=== PATIENT | male | born 1990 | race Caucasian/White ===

== ENCOUNTER 2018-04-10 12:27 | Inpatient (IN) | payer MEDICAID ==
[2018-04-10] MEDS: ONDANSETRON 4 MG ORAL DISINTEGRATING TAB (Q0162 PER 1MG) PO (13:07)
[2018-04-10 13:18] LABS: HEMATOCRIT 40.3 % (42.0-52.0); HEMOGLOBIN 14.5 g/dl (13.5-17.5); MEAN CORPUSCULAR VOLUME 86.3 fl (80.0-96.0); PLATELET COUNT, AUTOMATED 314 10^3/uL (150-450); RED BLOOD COUNT 4.67 10^6/uL (4.30-6.10); RED CELL DISTRIBUTION WIDTH 11.8 % (11.5-14.5); WHITE BLOOD COUNT 8.1 10^3/uL (4.0-10.0)
[2018-04-10] MEDS: LORazepam 2 MG TAB PO (13:20)
[2018-04-10 13:25] LABS: AMPHETAMINES LEVEL URINE NEGATIVE (NEGATIVE); BARBITURATES URINE NEGATIVE (NEGATIVE); BENZODIAZEPINES URINE NEGATIVE (NEGATIVE); CANNABINOIDS URINE POSITIVE (NEGATIVE); COCAINE METABOLITE URINE POSITIVE (NEGATIVE); METHADONE URINE NEGATIVE (NEGATIVE); OPIATES URINE POSITIVE (NEGATIVE); PHENCYCLIDINE URINE NEGATIVE (NEGATIVE)
[2018-04-10 13:35] LABS: ALBUMIN 3.4 GM/DL (3.2-5.2); ALBUMIN/GLOBULIN RATIO 0.89 (1.00-1.93); ALKALINE PHOSPHATASE 84 U/L (45-117); ALT/SGPT 32 U/L (12-78); ANION GAP 5 MEQ/L (8-16); AST/SGOT 28 U/L (7-37); BILIRUBIN,DIRECT < 0.1 MG/DL (0.0-0.2); BILIRUBIN,TOTAL 0.4 MG/DL (0.2-1.0); BLOOD UREA NITROGEN 14 MG/DL (7-18); CALCIUM LEVEL 8.5 MG/DL (8.5-10.1); CARBON DIOXIDE LEVEL 28 MEQ/L (21-32); CHLORIDE LEVEL 109 MEQ/L (98-107); CPK CREATINE PHOSPHOKINASE 411 U/L (39-308); CREATININE FOR GFR 0.88 MG/DL (0.70-1.30); ETHYL ALCOHOL (ETHANOL) < 0.003 % (0.000-0.010); GLOMERULAR FILTRATION RATE > 60.0 (>60); GLUCOSE, FASTING 98 MG/DL (70-100); SALICYLATE LEVEL 2.6 MG/DL (5.0-30.0); SODIUM LEVEL 142 MEQ/L (136-145); TOTAL PROTEIN 7.2 GM/DL (6.4-8.2)
[2018-04-10 13:40] LABS: ACETAMINOPHEN LEVEL < 2.0 UG/ML (10.0-30.0)
[2018-04-10] MEDS ORDERED: MAALOX 30 ML SUSP *UDC PO (14:15)
[2018-04-10] MEDS ORDERED: MOM 30ML SUSPENSION UDC PO (14:15)
[2018-04-10] MEDS ORDERED: ACETAMINOPHEN TAB 650MG DOSE (2X325MG) PO (14:15)
[2018-04-10] MEDS: traZODone 50 MG TAB PO (20:22)
[2018-04-10] MEDS: cloNIDine 0.1 MG TAB PO (20:23)
[2018-04-10] MEDS: diphenhydrAMINE INJ 50MG/ML VIAL (J1200) IM (20:39)
[2018-04-10] MEDS: OLANZapine INTRAMUSCULAR 10 MG VIAL (S0166) IM (20:39)
== END 2018-04-11 12:45 | disposition home or self-care (01) | DRG 773 ==
LOC: M ED 12:27 → M ED INP 14:05 → M PSY 15:05
DX: F11.94 Opioid use, unspecified with opioid-induced mood disorder (principal); R45.851 Suicidal ideations; I10 Essential (primary) hypertension; G43.909 Migraine, unspecified, not intractable, without status migrainosus; F17.210 Nicotine dependence, cigarettes, uncomplicated; Z79.899 Other long term (current) drug therapy; Z87.442 Personal history of urinary calculi

== ENCOUNTER 2018-05-03 17:22 | Emergency (ER) | payer OTHER, MEDICAID ==
[2018-05-03] MEDS ORDERED: LIDOCAINE W/EPINEPHRINE 1% 20ML VIAL As Ordered (18:48)
[2018-05-03] MEDS: LIDOCAINE W/EPINEPHRINE 1% 20ML VIAL SC (18:53)
== END 2018-05-03 20:06 | disposition home or self-care (01) ==
LOC: M ED 17:22
DX: S50.851A Superficial foreign body of right forearm, initial encounter (principal); W46.0XXA Contact with hypodermic needle, initial encounter; Y92.89 Other specified places as the place of occurrence of the external cause; I10 Essential (primary) hypertension; F33.9 Major depressive disorder, recurrent, unspecified; F41.9 Anxiety disorder, unspecified; G43.909 Migraine, unspecified, not intractable, without status migrainosus; F11.10 Opioid abuse, uncomplicated; Z79.899 Other long term (current) drug therapy; F17.210 Nicotine dependence, cigarettes, uncomplicated
CPT/HCPCS: 73080

== ENCOUNTER → 2019-03-21 | Outpatient (CLI) | payer OTHER, MEDICAID ==
[~2019-03-21] MED LIST: ABIL10TA9 PO; ABIL400I IM; ARIP1TAB6 PO; CLONI1TA PO; NICO21PAT TD; QUET5TAB PO; SERT-141 PO; ZOLO50TA PO
[2019-03-21 20:21] LABS: HEMATOCRIT 35.4 % (42.0-52.0); HEMOGLOBIN 12.4 g/dl (13.5-17.5); MEAN CORPUSCULAR HEMOGLOBIN 31.3 pg (27.0-33.0); MEAN CORPUSCULAR VOLUME 89.4 fl (80.0-96.0); PLATELET COUNT, AUTOMATED 301 10^3/uL (150-450); RED BLOOD COUNT 3.96 10^6/uL (4.30-6.10); WHITE BLOOD COUNT 8.3 10^3/uL (4.0-10.0)
[2019-03-21 20:43] LABS: ALBUMIN 3.7 GM/DL (3.2-5.2); ALT/SGPT 35 U/L (12-78); BILIRUBIN,TOTAL 0.3 MG/DL (0.2-1.0); BLOOD UREA NITROGEN 13 MG/DL (7-18); CALCIUM LEVEL 8.9 MG/DL (8.5-10.1); CARBON DIOXIDE LEVEL 28 MEQ/L (21-32); CHLORIDE LEVEL 109 MEQ/L (98-107); CREATININE FOR GFR 0.86 MG/DL (0.70-1.30); GLOMERULAR FILTRATION RATE > 60.0 (>60); GLUCOSE, FASTING 72 MG/DL (70-100); POTASSIUM SERUM 3.8 MEQ/L (3.5-5.1); SODIUM LEVEL 144 MEQ/L (136-145); TOTAL PROTEIN 6.4 GM/DL (6.4-8.2)
[2019-03-21 21:19] LABS: CHLAMYDIA DNA AMPLIFICATION NEGATIVE (NEGATIVE); GC DNA AMPLIFICATION NEGATIVE (NEGATIVE)
[2019-03-22 10:02] LABS: HEPATITIS B SURFACE ANTIGEN NEGATIVE (NEGATIVE)
[2019-03-22 10:38] LABS: HEPATITIS C VIRUS ABY INDEX 7.6 INDEX (<0.8)
[2019-03-22 12:02] LABS: HIV 1&2 SCREEN CENTAUR NEGATIVE (NEGATIVE)
== END ==
LOC: M WUC 16:16
PROVIDERS: ATTEND Family Medicine
DX: F11.20 Opioid dependence, uncomplicated (principal)

== ENCOUNTER 2020-05-11 09:30 | Emergency (ER) | payer MEDICAID, OTHER ==
[~2020-05-11 09:30] MED LIST changes: +NALOXONE 2MG/2ML SYRINGE (J2310 PER 1MG) ONE
[2020-08-07 08:38] LABS: ABG BASE EXCESS -5.1 (-2.0-2.0); ABG HCO3 21.6 MEQ/L (22.0-26.0); ABG O2 SATURATION 90.2 % (95.0-99.0); ABG PARTIAL PRESSURE O2 60.3 mmHg (75.0-100.0); ABG STANDARD HCO3 20.2 MEQ/L (22.0-26.0)
== END 2020-05-11 12:20 | disposition home or self-care (01) ==
LOC: M ED 09:30
DX: F10.10 Alcohol abuse, uncomplicated (principal); F11.10 Opioid abuse, uncomplicated; Z79.899 Other long term (current) drug therapy
CPT/HCPCS: 36415; 82803; 96372; 99283; J2310

== ENCOUNTER → 2020-09-16 | Outpatient (CLI) | payer MEDICAID ==
[~2020-09-16] MED LIST changes: -NALOXONE 2MG/2ML SYRINGE (J2310 PER 1MG) ONE
[2020-09-16 09:15] LABS: HEMATOCRIT 47.7 % (42.0-52.0); HEMOGLOBIN 15.5 g/dl (13.5-17.5); MEAN CORPUSCULAR HEMOGLOBIN 29.2 pg (27.0-33.0); MEAN CORPUSCULAR HGB CONC 32.5 g/dl (32.0-36.5); MEAN CORPUSCULAR VOLUME 89.8 fl (80.0-96.0); PLATELET COUNT, AUTOMATED 369 10^3/uL (150-450); RED BLOOD COUNT 5.31 10^6/uL (4.30-6.10); WHITE BLOOD COUNT 10.9 10^3/uL (4.0-10.0)
--- NOTE | 2020-09-16 09:44 | ECGEPIP ---
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
[2020-09-16 09:49] LABS: ALBUMIN 3.9 GM/DL (3.2-5.2); ALT/SGPT 26 U/L (12-78); BILIRUBIN,TOTAL 0.5 MG/DL (0.2-1.0); BLOOD UREA NITROGEN 12 MG/DL (7-18); CALCIUM LEVEL 9.6 MG/DL (8.5-10.1); CARBON DIOXIDE LEVEL 30 MEQ/L (21-32); CHLORIDE LEVEL 105 MEQ/L (98-107); CREATININE FOR GFR 0.81 MG/DL (0.70-1.30); GLOMERULAR FILTRATION RATE > 60.0 (>60); GLUCOSE, FASTING 89 MG/DL (70-100); POTASSIUM SERUM 4.8 MEQ/L (3.5-5.1); SODIUM LEVEL 137 MEQ/L (136-145); TOTAL PROTEIN 7.4 GM/DL (6.4-8.2)
[2020-09-16 10:44] LABS: HEPATITIS B SURFACE ANTIGEN NEGATIVE (NEGATIVE)
[2020-09-16 11:14] LABS: HEPATITIS C VIRUS ABY INDEX 4.1 INDEX (<0.8); HIV 1&2 SCREEN CENTAUR NEGATIVE (NEGATIVE)
== END ==
LOC: M LAB 08:29
PROVIDERS: ATTEND Family Medicine
DX: F11.20 Opioid dependence, uncomplicated (principal); I44.5 Left posterior fascicular block

== ENCOUNTER 2020-10-20 13:25 | Inpatient (IN) | payer MEDICAID, OTHER ==
[~2020-10-20] VITALS: Ht 167.6 cm; Wt 80.6 kg
[2020-10-20] MEDS ORDERED: METH10TA2 PO (13:33)
[2020-10-20 14:51] LABS: HEMATOCRIT 49.8 % (42.0-52.0); HEMOGLOBIN 15.9 g/dl (13.5-17.5); MEAN CORPUSCULAR HEMOGLOBIN 29.7 pg (27.0-33.0); MEAN CORPUSCULAR HGB CONC 31.9 g/dl (32.0-36.5); MEAN CORPUSCULAR VOLUME 92.9 fl (80.0-96.0); PLATELET COUNT, AUTOMATED 220 10^3/uL (150-450); RED BLOOD COUNT 5.36 10^6/uL (4.30-6.10); WHITE BLOOD COUNT 13.6 10^3/uL (4.0-10.0)
[2020-10-20 15:22] LABS: AMPHETAMINES LEVEL URINE NEGATIVE (NEGATIVE); BARBITURATES URINE NEGATIVE (NEGATIVE); BENZODIAZEPINES URINE NEGATIVE (NEGATIVE); CANNABINOIDS URINE POSITIVE (NEGATIVE); COCAINE METABOLITE URINE NEGATIVE (NEGATIVE); METHADONE URINE POSITIVE (NEGATIVE); OPIATES URINE POSITIVE (NEGATIVE); PHENCYCLIDINE URINE NEGATIVE (NEGATIVE)
[2020-10-20 15:28] LABS: ACETAMINOPHEN LEVEL < 2.0 UG/ML (10.0-30.0); ALBUMIN 4.5 GM/DL (3.2-5.2); ALT/SGPT 44 U/L (12-78); BILIRUBIN,DIRECT < 0.1 MG/DL (0.0-0.2); BILIRUBIN,TOTAL 0.6 MG/DL (0.2-1.0); BLOOD UREA NITROGEN 12 MG/DL (7-18); CARBON DIOXIDE LEVEL 26 MEQ/L (21-32); CHLORIDE LEVEL 107 MEQ/L (98-107); CREATININE FOR GFR 0.88 MG/DL (0.70-1.30); ETHYL ALCOHOL (ETHANOL) < 0.003 % (0.000-0.010); GLOMERULAR FILTRATION RATE > 60.0 (>60); GLUCOSE, FASTING 104 MG/DL (70-100); POTASSIUM SERUM 4.6 MEQ/L (3.5-5.1); SALICYLATE LEVEL 5.7 MG/DL (5.0-30.0); SODIUM LEVEL 138 MEQ/L (136-145); TOTAL PROTEIN 8.2 GM/DL (6.4-8.2)
[2020-10-20] MEDS ORDERED: LORazepam 2 MG TAB PO STA (18:08)
[2020-10-21] MEDS ORDERED: METHADONE 10 MG TAB (S0109) PO SCH (09:00)
[2020-10-21] MEDS ORDERED: diphenhydrAMINE 50MG/ML VIAL (J1200) As Ordered ONE (11:51)
[2020-10-21] MEDS ORDERED: HALOPERIDOL 5MG/ML VIAL (J1630 PER 1) As Ordered ONE (11:51)
[2020-10-21] MEDS ORDERED: LORazepam 2 MG/ML VIAL As Ordered ONE (11:52)
[2020-10-21] MEDS ORDERED: diphenhydrAMINE 50MG/ML VIAL (J1200) IM ONE (12:00)
[2020-10-21] MEDS ORDERED: HALOPERIDOL 5MG/ML VIAL (J1630 PER 1) IM ONE (12:00)
[2020-10-21] MEDS ORDERED: LORazepam 2 MG/ML VIAL IM ONE (12:00)
[2020-10-21 14:16] LABS: RSV AMPLIFICATION NEGATIVE (NEGATIVE)
[2020-10-21] MEDS ORDERED: traZODone 50 MG TAB PO PRN (17:00)
[2020-10-21] MEDS ORDERED: ACETAMINOPHEN TAB 650MG DOSE (2X325MG) PO PRN (17:00)
[2020-10-21] MEDS ORDERED: diphenhydrAMINE 25MG CAP PO PRN ×2 (17:00)
[2020-10-21] MEDS ORDERED: MOM 30ML SUSPENSION UDC PO PRN (17:00)
[2020-10-21] MEDS ORDERED: haloperidoL 5 MG TAB PO PRN (17:00)
[2020-10-21] MEDS ORDERED: MAALOX 30 ML SUSP *UDC PO PRN (17:00)
[2020-10-21 21:57] VITALS: BP 168/92
[2020-10-21] MEDS: OLANZapine 10 MG TAB PO SCH (22:06)
[2020-10-22 06:10] VITALS: BP 137/91
[2020-10-22] MEDS: NICOTINE 21MG/24HR 1 EA TRANSDERMAL TD SCH (09:47)
[2020-10-22] MEDS: METHADONE 10 MG TAB (S0109) PO SCH (09:48)
[2020-10-22] MEDS: OLANZapine 10 MG TAB PO SCH ×3 (09:48→20:11)
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
[2020-10-22] MEDS ORDERED: traZODone 100 MG TAB PO PRN (12:30)
--- NOTE | 2020-10-22 12:48 | HPEPDOC ---
[facility] Medical History & Physical Date of Admission Oct 22, 2020 Date of Service: Oct 22, 2020 History and Physical CHIEF COMPLAINT: routine medical examination HISTORY OF PRESENT ILLNESS: 30 y/o male admitted to [facility] for unspecified psychotic disorder. Hospitalist asked to do routine medical examination. Pt c/o wheezing at times, but no prior diagnosis of asthma or copd. He denies sob, nocturnal symptoms, fever, chills, or cough. no other complaints. PAST MEDICAL HISTORY: Anxiety Depression Bipolar disorder Substance use-opiates, methadone, cannabinoids History of hypertension History of kidney stones H/O migraine CONTRERAS. H/O drug related seizure PSHX: none HOME MEDICATIONS: see below ALLERGIES: see below HOSPITAL MEDICATIONS: see below SOCHX: Marital Status: Kids: 3 Employment: [employer] Tobacco use: One pack per day ETOH: Denies Illicit Drugs: History of cocaine, heroin, meth IV Drug Use: Heroin Tattoos done unprofessionally: Several FAMHX: Mother: Alive, lung cancer, COPD Father: Alive, well Siblings: 2 brothers, 2 sisters Alive, unknown Children: Alive, unknown Unexpected deaths due to medical reasons: None. ROS: 10 point ros negative aside from positive findings on HPI PHYSICAL EXAMINATION: VITALS: SEE BELOW GEN: pressured speech. no pallor no distress speaks in full sentences HEENT: moist mm no thyromegaly or cervical LAD Lungs: AEBE no wheezing/rales/rhonchi CTAB Heart: S1S2 RRR Abd: soft nt nd +BS x 4 quadrants Ext: no c/c/e LABORATORY DATA: REVIEWED. SEE BELOW ASSESSMENT: 30 y/o male admitted to [facility] for unspecified psychotic disorder Anxiety Depression Bipolar disorder PolySubstance use-cigarette abuse, cocaine, methadone, cannabinoids. History of hypertension History of kidney stones H/O migraine CONTRERAS. H/O drug related seizure PLAN: Psychiatric management per primary team. tobacco cessation counselling and nicotine replacement therapy. prn albuterol. outpt referral for pulmonary function testing. Hospitalist signing off. Vital Signs Vital Signs Date Time Temp Pulse Resp B/P (MAP) Pulse Ox O2 Delivery O2 Flow Rate FiO2 10/22/20 06:10 99.1 91 16 137/91 (106) 98 Room Air Laboratory Data Labs 24H Laboratory Tests 2 10/21/20 12:49: Coronavirus (COVID-19)(PCR) NEGATIVE, Influenza Type A (RT-PCR) NEGATIVE, Influenza Type B (RT-PCR) NEGATIVE, Respiratory Syncytial Virus (PCR) NEGATIVE Home Medications Scheduled Methadone HCl (Methadone HCl) 10 Mg Tablet, 70 MG PO DAILY VERIFIED DOSE WITH JODI MONZON Allergies Coded Allergies: No Known Allergies (Unverified , 08/18/17) A-FIB/CHADSVASC A-FIB History Current/History of A-Fib/PAF?: No Current PO Anticoag Therapy: No Age/Risk Factor Scoring CHADSVASC: CHADSVASC Response (Comments) Value Age Risk Factor Age < 65 years old 0 Gender Risk Factor Male 0 Hx of CHF No 0 Hx of HTN No 0 Hx of Stroke/TIA/or VTE No 0 Hx of Diabetes No 0 Hx of Vascular Disease No 0 Total 0 Treatment Treatment ordered: NONE ABHAY SALDIVAR MD Oct 22, 2020 12:35
[2020-10-22] MEDS: ALBUTEROL 90 MCG/ACT 8GM HFA INHALER INH PRN (14:02)
[2020-10-22 15:43] VITALS: BP 138/98
[2020-10-23 06:38] VITALS: BP 147/96
[2020-10-23] MEDS: METHADONE 10 MG TAB (S0109) PO SCH (08:24)
[2020-10-23] MEDS: NICOTINE 21MG/24HR 1 EA TRANSDERMAL TD SCH (08:24)
[2020-10-23] MEDS: OLANZapine 10 MG TAB PO SCH (08:24)
[2020-10-23] MEDS: ALBUTEROL 90 MCG/ACT 8GM HFA INHALER INH PRN (09:19)
[2020-10-23] MEDS ORDERED: OLAN10TA2 PO (10:08)
[2020-10-23] MEDS ORDERED: TRAZ-257 PO (10:08)
[2020-10-23] MEDS ORDERED: VENTAER INH (10:08)
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
== END 2020-10-23 12:55 | disposition home or self-care (01) | DRG 753 ==
LOC: M ED 13:25 → M ED INP 10-21 16:52 → M PSY 10-21 19:13
PROVIDERS: ADMIT Psychiatry & Neurology Psychiatry; ATTEND Psychiatry & Neurology Psychiatry
DX: F31.10 Bipolar disorder, current episode manic without psychotic features, unspecified (principal); I10 Essential (primary) hypertension; F17.200 Nicotine dependence, unspecified, uncomplicated; F12.10 Cannabis abuse, uncomplicated; F11.90 Opioid use, unspecified, uncomplicated; F43.10 Post-traumatic stress disorder, unspecified; F60.2 Antisocial personality disorder; G43.909 Migraine, unspecified, not intractable, without status migrainosus

== ENCOUNTER 2021-08-29 19:35 | Inpatient (IN) | payer MEDICAID, OTHER ==
[~2021-08-29] VITALS: Ht 167.6 cm; Wt 70.5 kg
[~2021-08-29 19:35] MED LIST changes: +METH-1177 PO; +OLAN1TAB20 PO; +QUET50TA4 PO; -QUET5TAB PO; +TRAZ-257 PO; +VENTAER INH
[2021-08-29] MEDS ORDERED: NS 1,000 ML IV ONE (20:00)
[2021-08-29 20:46] LABS: BASO # 0.1 10^3/uL (0.0-0.2); BASO % 0.4 % (0.0-1.0); EOS # 0.2 10^3/uL (0.0-0.5); EOS % 1.4 % (0.0-3.0); HEMATOCRIT 38.8 % (42.0-52.0); HEMOGLOBIN 13.3 g/dl (13.5-17.5); LYMPH # 2.5 10^3/uL (1.5-5.0); LYMPH % 21.3 % (24.0-44.0); MEAN CORPUSCULAR HEMOGLOBIN 29.9 pg (27.0-33.0); MEAN CORPUSCULAR HGB CONC 34.3 g/dl (32.0-36.5); MEAN CORPUSCULAR VOLUME 87.2 fl (80.0-96.0); MONO # 0.8 10^3/uL (0.0-0.8); MONO % 6.6 % (2.0-8.0); PLATELET COUNT, AUTOMATED 398 10^3/uL (150-450); RED BLOOD COUNT 4.45 10^6/uL (4.30-6.10); WHITE BLOOD COUNT 11.5 10^3/uL (4.0-10.0)
[2021-08-29 21:27] LABS: ACETAMINOPHEN LEVEL < 2.0 UG/ML (10.0-30.0); ALBUMIN 3.3 GM/DL (3.2-5.2); ALT/SGPT 23 U/L (12-78); BILIRUBIN,DIRECT 0.2 MG/DL (0.0-0.2); BILIRUBIN,TOTAL 0.5 MG/DL (0.2-1.0); BLOOD UREA NITROGEN 12 MG/DL (7-18); CALCIUM LEVEL 9.4 MG/DL (8.5-10.1); CARBON DIOXIDE LEVEL 29 MEQ/L (21-32); CHLORIDE LEVEL 106 MEQ/L (98-107); CPK CREATINE PHOSPHOKINASE 205 U/L (39-308); CREATININE FOR GFR 0.89 MG/DL (0.70-1.30); ETHYL ALCOHOL (ETHANOL) < 0.003 % (0.000-0.010); GLOMERULAR FILTRATION RATE > 60.0 (>60); GLUCOSE, FASTING 87 MG/DL (70-100); POTASSIUM SERUM 4.1 MEQ/L (3.5-5.1); SALICYLATE LEVEL 3.9 MG/DL (5.0-30.0); SODIUM LEVEL 140 MEQ/L (136-145)
[2021-08-29 23:57] LABS: AMPHETAMINES LEVEL URINE POSITIVE (NEGATIVE); BARBITURATES URINE NEGATIVE (NEGATIVE); BENZODIAZEPINES URINE NEGATIVE (NEGATIVE); CANNABINOIDS URINE POSITIVE (NEGATIVE); COCAINE METABOLITE URINE NEGATIVE (NEGATIVE); METHADONE URINE NEGATIVE (NEGATIVE); OPIATES URINE POSITIVE (NEGATIVE); PHENCYCLIDINE URINE NEGATIVE (NEGATIVE)
[2021-08-30] MEDS ORDERED: LORazepam 2 MG TAB PO ONE (16:35)
[2021-08-31] MEDS ORDERED: LORazepam 2 MG TAB PO ONE ×2 (07:50→16:05)
[2021-08-31] MEDS ORDERED: LORazepam 2 MG/ML VIAL IV STA (20:04)
[2021-08-31] MEDS ORDERED: LORazepam 2 MG/ML VIAL IM STA (20:04)
[2021-08-31] MEDS ORDERED: METOCLOPRAMIDE 10 MG TAB PO ONE (22:10)
[2021-08-31] MEDS ORDERED: cloNIDine 0.1MG TABLET PO ONE (22:10)
[2021-09-01] MEDS ORDERED: cloNIDine HCL 0.3 MG/24 HR PATCH TOP SCH (09:00)
[2021-09-01] MEDS ORDERED: LORazepam 2 MG TAB PO STA (09:34)
[2021-09-01] MEDS ORDERED: HOME MED LIST COMPLETE! XX SCH (11:15)
[2021-09-01 12:19] LABS: RSV AMPLIFICATION NEGATIVE (NEGATIVE)
[2021-09-01] MEDS ORDERED: ACETAMINOPHEN TAB 650MG DOSE (2X325MG) PO PRN (15:40)
[2021-09-01] MEDS ORDERED: MAALOX 30 ML SUSP *UDC PO PRN (15:40)
[2021-09-01] MEDS ORDERED: MOM 30ML SUSPENSION UDC PO PRN (15:40)
[2021-09-01] MEDS ORDERED: NICOTINE 21MG/24HR 1 EA TRANSDERMAL TD PRN (16:45)
[2021-09-01] MEDS: cloNIDine 0.1MG TABLET PO PRN (19:35)
[2021-09-01] MEDS: traZODone 50 MG TAB PO PRN (20:40)
[2021-09-01] MEDS: OLANZapine ORAL DISINTEGRATING TAB 5MG PO PRN (22:19)
[2021-09-02 06:24] VITALS: BP 148/96
[2021-09-02] MEDS: NICOTINE 21MG/24HR 1 EA TRANSDERMAL TD SCH (10:55)
[2021-09-02] MEDS ORDERED: NAPROXEN 250 MG TAB PO PRN (16:00)
[2021-09-02] MEDS: OLANZapine ORAL DISINTEGRATING TAB 5MG PO PRN (16:03)
[2021-09-02] MEDS: cloNIDine 0.1MG TABLET PO PRN (16:04)
[2021-09-02] MEDS ORDERED: CLONI1TA PO (16:08)
[2021-09-02] MEDS ORDERED: NICO21PAT TD (16:08)
[2021-09-02] MEDS ORDERED: TRAZ-252 PO (16:08)
[2021-09-02] MEDS ORDERED: AMLO1TAB24 PO (16:08)
[2021-09-02] MEDS ORDERED: cloNIDine 0.1MG TABLET PO ONE (16:20)
[2021-09-02] MEDS ORDERED: diazePAM 5MG TABLET PO ONE ×2 (16:20→21:00)
[2021-09-02] MEDS ORDERED: cloNIDine 0.2 MG TAB PO PRN (16:20)
[2021-09-02] MEDS: ONDANSETRON 4 MG TAB PO SCH ×2 (16:29→21:22)
[2021-09-02 18:46] VITALS: BP 145/97
[2021-09-02] MEDS: amLODIPine 5 MG TAB PO SCH (21:21)
[2021-09-02] MEDS: traZODone 50 MG TAB PO PRN (21:21)
[2021-09-03] MEDS: ONDANSETRON 4 MG TAB PO SCH (05:43)
[2021-09-03 06:00] VITALS: BP 137/94
[2021-09-03 08:54] VITALS: BP 137/94
[2021-09-03] MEDS: NICOTINE 21MG/24HR 1 EA TRANSDERMAL TD SCH (08:54)
[2021-09-03] MEDS: amLODIPine 5 MG TAB PO SCH (08:54)
[2021-09-03] MEDS ORDERED: cloNIDine 0.1MG TABLET PO SCH (09:00)
== END 2021-09-03 10:07 | disposition home or self-care (01) | DRG 773 ==
LOC: M ED 19:35 → M ED INP 09-01 14:18 → M PSY 09-01 14:43
PROVIDERS: ADMIT Student in an Organized Health Care Education/Training Program; ATTEND Student in an Organized Health Care Education/Training Program
DX: F11.14 Opioid abuse with opioid-induced mood disorder (principal); F31.9 Bipolar disorder, unspecified; F43.10 Post-traumatic stress disorder, unspecified; R45.851 Suicidal ideations; F17.210 Nicotine dependence, cigarettes, uncomplicated; F12.10 Cannabis abuse, uncomplicated; F60.2 Antisocial personality disorder; I10 Essential (primary) hypertension; Z20.822 Contact with and (suspected) exposure to COVID-19

== ENCOUNTER 2024-03-02 15:42 | Inpatient (IN) | payer MEDICAID, OTHER ==
[~2024-03-02] VITALS: Ht 167.6 cm; Wt 86.5 kg
[~2024-03-02 15:42] MED LIST changes: +AMLO1TAB24 PO; +TRAZ-252 PO
[2024-03-02 16:55] LABS: BASO % 0.3 % (0.0-1.0); HEMOGLOBIN 15.6 g/dl (13.5-17.5); LYMPH # 0.9 10^3/uL (1.5-5.0); LYMPH % 6.1 % (24.0-44.0); MEAN CORPUSCULAR HEMOGLOBIN 28.3 pg (27.0-33.0); MEAN CORPUSCULAR HGB CONC 33.9 g/dl (32.0-36.5); MEAN CORPUSCULAR VOLUME 83.5 fl (80.0-96.0); MONO # 0.3 10^3/uL (0.0-0.8); MONO % 1.8 % (2.0-8.0); NEUTROPHILS # 13.5 10^3/uL (1.5-8.5); NEUTROPHILS % 91.4 % (36.0-66.0); PLATELET COUNT, AUTOMATED 662 10^3/uL (150-450); RED BLOOD COUNT 5.51 10^6/uL (4.30-6.10); WHITE BLOOD COUNT 14.8 10^3/uL (4.0-10.0)
[2024-03-02 17:06] LABS: ERYTHROCYTE SEDIMENTATION RATE 51 mm/hr (0-15)
[2024-03-02] MEDS ORDERED: VANCOMYCIN HCL 1,750 MG in NS 250 ML IV ONE (17:15)
[2024-03-02 17:35] LABS: BARBITURATES URINE NEGATIVE (NEGATIVE); METHADONE URINE NEGATIVE (NEGATIVE); PHENCYCLIDINE URINE NEGATIVE (NEGATIVE)
[2024-03-02 17:36] LABS: CANNABINOIDS URINE NEGATIVE (NEGATIVE)
[2024-03-02 17:43] LABS: AMPHETAMINES LEVEL URINE POSITIVE (NEGATIVE); BENZODIAZEPINES URINE POSITIVE (NEGATIVE); COCAINE METABOLITE URINE POSITIVE (NEGATIVE); OPIATES URINE POSITIVE (NEGATIVE)
[2024-03-02] MEDS: ONDANSETRON 4MG 2ML VIAL IV ONE (17:46)
[2024-03-02 17:49] LABS: LIPASE 39 U/L (12-53)
[2024-03-02 17:52] LABS: ALBUMIN 3.9 G/DL (3.2-5.2); ALKALINE PHOSPHATASE 125 U/L (46-116); ALT/SGPT 20 U/L (7.0-40); AST/SGOT 28 U/L (<34); BILIRUBIN,DIRECT 0.1 MG/DL (<0.4); BILIRUBIN,TOTAL 0.4 MG/DL (0.3-1.2); BLOOD UREA NITROGEN 10 MG/DL (9-23); CALCIUM LEVEL 9.9 MG/DL (8.5-10.1); CARBON DIOXIDE LEVEL 27 MMOL/L (20-31); CHLORIDE LEVEL 102 MMOL/L (98-107); CREATININE FOR GFR 0.76 MG/DL (0.70-1.30); GLOMERULAR FILTRATION RATE > 60.0 (>60); GLUCOSE, FASTING 120 MG/DL (60-100); POTASSIUM SERUM 4.6 MMOL/L (3.5-5.1); SODIUM LEVEL 137 MMOL/L (136-145); TOTAL PROTEIN 8.7 G/DL (5.7-8.2)
[2024-03-02] MEDS: VANCOMYCIN HCL 1,000 MG, VIAL MATE ADAPTER 1 EACH in D5W 250 ML IV ONE (17:53)
[2024-03-02] MEDS: cloNIDine 0.1MG TABLET PO ONE (17:53)
[2024-03-02 17:55] LABS: CPK CREATINE PHOSPHOKINASE 115 U/L (46-171)
[2024-03-02] MEDS: VANCOMYCIN HCL 750 MG, VIAL MATE ADAPTER 1 EACH in D5W 250 ML IV ONE (19:04)
[2024-03-02] MEDS ORDERED: HOME MED LIST COMPLETE! XX SCH (20:15)
[2024-03-02] MEDS: cloNIDine 0.1MG TABLET PO PRN (20:49)
[2024-03-02 22:00] VITALS: BP 159/98; TEMP 100.4; O2SAT 98
[2024-03-02 22:58] VITALS: BP 188/102; TEMP 99.6; O2SAT 98
[2024-03-02] MEDS: cloNIDine 0.2 MG TAB PO PRN (23:16)
[2024-03-02] MEDS: NS 1,000 ML IV SCH (23:17)
[2024-03-02] MEDS: LR 1,000 ML IV SCH (23:18)
[2024-03-02] MEDS: BUPRENORPHINE/NALOXONE 8-2MG SUBLINGUAL TABLET(SUBOXONE) SL SCH (23:36)
[2024-03-02 23:55] VITALS: BP 182/98; TEMP 100.4
[2024-03-03] VITALS (8 sets, daily range): BP systolic 145–188; BP diastolic 64–114; TEMP 97.4–99.9; O2SAT 94–98
[2024-03-03] MEDS: LORazepam 2 MG/ML 1ML VIAL IV PRN (00:50)
[2024-03-03] MEDS: ONDANSETRON 4MG 2ML VIAL IV PRN (01:23)
[2024-03-03] MEDS: ACETAMINOPHEN *IV* 1,000 MG in IV 1 EA IV ONE (01:25)
[2024-03-03] MEDS: VANCOMYCIN HCL 1,000 MG, VIAL MATE ADAPTER 1 EACH in NS 250 ML IV SCH (02:52)
[2024-03-03] MEDS ORDERED: ACETAMINOPHEN *IV* 1,000 MG in IV 1 EA IV PRN ×2 (03:40→07:00)
[2024-03-03] MEDS: SENOKOT S TAB PO SCH (09:00)
[2024-03-03] MEDS: PANTOPRAZOLE 40MG VIAL IV SCH (09:49)
[2024-03-03] MEDS: ENOXAPARIN 40MG/0.4ML SYRINGE (J1650 PER 10MG) SC SCH (09:49)
[2024-03-03] MEDS ORDERED: LIDOCAINE 1% MDV 20ML VIAL As Ordered ONE (10:51)
[2024-03-03] MEDS: OLANZapine 5 MG TAB PO PRN (11:44)
[2024-03-03] MEDS ORDERED: IBUPROFEN 600MG TAB PO PRN (12:15)
[2024-03-03] MEDS ORDERED: cloNIDine 0.1MG TABLET PO PRN (16:00)
[2024-03-03 16:32] LABS: BASO % 0.2 % (0.0-1.0); EOS % 0.1 % (0.0-3.0); HEMATOCRIT 40.4 % (42.0-52.0); HEMOGLOBIN 13.9 g/dl (13.5-17.5); LYMPH # 1.6 10^3/uL (1.5-5.0); LYMPH % 9.9 % (24.0-44.0); MEAN CORPUSCULAR HEMOGLOBIN 28.4 pg (27.0-33.0); MEAN CORPUSCULAR HGB CONC 34.4 g/dl (32.0-36.5); MEAN CORPUSCULAR VOLUME 82.6 fl (80.0-96.0); MONO # 0.8 10^3/uL (0.0-0.8); MONO % 5.2 % (2.0-8.0); NEUTROPHILS # 13.6 10^3/uL (1.5-8.5); NEUTROPHILS % 84.2 % (36.0-66.0); PLATELET COUNT, AUTOMATED 584 10^3/uL (150-450); RED BLOOD COUNT 4.89 10^6/uL (4.30-6.10); WHITE BLOOD COUNT 16.1 10^3/uL (4.0-10.0)
[2024-03-03 17:03] LABS: HEPATITIS B SURFACE ANTIBODY NEGATIVE (POSITIVE)
[2024-03-03 17:08] LABS: PROCALCITONIN <0.04 ng/ml
[2024-03-03 17:15] LABS: HEPATITIS B SURFACE ANTIGEN NEGATIVE (NEGATIVE)
[2024-03-03 17:28] LABS: HIV 1&2 SCREEN NEGATIVE (NEGATIVE)
[2024-03-03 17:39] LABS: ALBUMIN 3.4 G/DL (3.2-5.2); ALKALINE PHOSPHATASE 101 U/L (46-116); ALT/SGPT 17 U/L (7.0-40); ANTI-STREPTOLYSIN O QUANT 1610.2 IU/ML (<195); AST/SGOT 25 U/L (<34); BILIRUBIN,TOTAL 0.3 MG/DL (0.3-1.2); BLOOD UREA NITROGEN 8 MG/DL (9-23); CALCIUM LEVEL 9.2 MG/DL (8.5-10.1); CARBON DIOXIDE LEVEL 28 MMOL/L (20-31); CHLORIDE LEVEL 106 MMOL/L (98-107); CREATININE FOR GFR 0.75 MG/DL (0.70-1.30); GLOMERULAR FILTRATION RATE > 60.0 (>60); GLUCOSE, FASTING 123 MG/DL (60-100); SODIUM LEVEL 140 MMOL/L (136-145); TOTAL PROTEIN 7.5 G/DL (5.7-8.2)
[2024-03-03 17:41] LABS: HEPATITIS C VIRUS ABY INDEX > 11.00 INDEX (<0.8)
[2024-03-03] MEDS: SODIUM CHLORIDE 0.9% INJ 10 ML SYR IV SCH (18:22)
[2024-03-03] MEDS: METOPROLOL TART 25 MG TABLET PO ONE (21:30)
[2024-03-03] MEDS: cloNIDine 0.2 MG TAB PO SCH (22:30)
[2024-03-04] VITALS (15 sets, daily range): BP systolic 150–194; BP diastolic 84–122; TEMP 97–99.1; O2SAT 96–98
[2024-03-04] MEDS: METOPROLOL TART 25 MG TABLET PO SCH (07:48)
[2024-03-04] MEDS: cloNIDine 0.2 MG TAB PO SCH (07:48)
[2024-03-04 08:30] LABS: BASO # 0.1 10^3/uL (0.0-0.2); BASO % 0.4 % (0.0-1.0); EOS # 0.1 10^3/uL (0.0-0.5); EOS % 0.5 % (0.0-3.0); HEMOGLOBIN 13.8 g/dl (13.5-17.5); LYMPH # 1.7 10^3/uL (1.5-5.0); LYMPH % 13.4 % (24.0-44.0); MEAN CORPUSCULAR HEMOGLOBIN 29.4 pg (27.0-33.0); MEAN CORPUSCULAR HGB CONC 35.4 g/dl (32.0-36.5); MONO # 0.7 10^3/uL (0.0-0.8); MONO % 5.4 % (2.0-8.0); NEUTROPHILS # 10.3 10^3/uL (1.5-8.5); PLATELET COUNT, AUTOMATED 504 10^3/uL (150-450); WHITE BLOOD COUNT 12.9 10^3/uL (4.0-10.0)
[2024-03-04 08:57] LABS: BLOOD UREA NITROGEN 8 MG/DL (9-23); CALCIUM LEVEL 9.3 MG/DL (8.5-10.1); CARBON DIOXIDE LEVEL 27 MMOL/L (20-31); CHLORIDE LEVEL 106 MMOL/L (98-107); CREATININE FOR GFR 0.69 MG/DL (0.70-1.30); GLOMERULAR FILTRATION RATE > 60.0 (>60); GLUCOSE, FASTING 106 MG/DL (60-100); MAGNESIUM LEVEL 1.8 MG/DL (1.8-2.4); POTASSIUM SERUM 3.9 MMOL/L (3.5-5.1); SODIUM LEVEL 139 MMOL/L (136-145)
[2024-03-04] MEDS: PERCOCET 5MG/325MG TAB PO PRN (09:05)
[2024-03-04 09:19] LABS: VANCOMYCIN RANDOM 13.1 UG/ML
[2024-03-04] MEDS: hydrALAZINE 20MG/ML 1ML VIAL IV STA (09:49)
[2024-03-04] MEDS: CARVedilol 6.25 MG TAB PO ONE (10:34)
[2024-03-04] MEDS: cloNIDine 0.2 MG TAB PO ONE (11:09)
[2024-03-04] MEDS: ACETAMINOPHEN 500 MG TAB PO PRN (11:21)
[2024-03-04] MEDS: LACTULOSE 20GM/30ML SYRUP UDC PO SCH (11:39)
[2024-03-04] MEDS: LORazepam 2 MG/ML 1ML VIAL IV PRN (11:50)
[2024-03-04] MEDS: SODIUM CHLORIDE 0.9% INJ 10 ML SYR IV PRN (12:41)
[2024-03-04] MEDS ORDERED: hydrALAZINE 20MG/ML 1ML VIAL IV PRN (13:30)
[2024-03-04] MEDS: cloNIDine 0.1MG TABLET PO SCH (15:47)
[2024-03-04] MEDS: METHADONE 10MG TAB PO ONE (18:04)
[2024-03-04] MEDS: CARVedilol 6.25 MG TAB PO SCH (20:22)
[2024-03-05] VITALS (9 sets, daily range): BP systolic 112–158; BP diastolic 70–112; TEMP 97–99.5; O2SAT 95–98
[2024-03-05 06:53] LABS: BASO # 0.1 10^3/uL (0.0-0.2); BASO % 0.7 % (0.0-1.0); EOS # 0.1 10^3/uL (0.0-0.5); EOS % 1.2 % (0.0-3.0); HEMATOCRIT 41.4 % (42.0-52.0); HEMOGLOBIN 14.1 g/dl (13.5-17.5); LYMPH # 2.7 10^3/uL (1.5-5.0); LYMPH % 24.6 % (24.0-44.0); MEAN CORPUSCULAR HEMOGLOBIN 28.7 pg (27.0-33.0); MEAN CORPUSCULAR HGB CONC 34.1 g/dl (32.0-36.5); MEAN CORPUSCULAR VOLUME 84.3 fl (80.0-96.0); MONO # 0.8 10^3/uL (0.0-0.8); MONO % 6.9 % (2.0-8.0); NEUTROPHILS # 7.3 10^3/uL (1.5-8.5); NEUTROPHILS % 66.2 % (36.0-66.0); PLATELET COUNT, AUTOMATED 438 10^3/uL (150-450); RED BLOOD COUNT 4.91 10^6/uL (4.30-6.10)
[2024-03-05 07:32] LABS: C REACTIVE PROTEIN QUANTITATIV < 0.40 MG/DL (<1.0)
[2024-03-05 07:33] LABS: BLOOD UREA NITROGEN 11 MG/DL (9-23); CARBON DIOXIDE LEVEL 27 MMOL/L (20-31); CHLORIDE LEVEL 109 MMOL/L (98-107); CREATININE FOR GFR 0.83 MG/DL (0.70-1.30); GLOMERULAR FILTRATION RATE > 60.0 (>60); GLUCOSE, FASTING 101 MG/DL (60-100); PHOSPHORUS LEVEL 3.5 MG/DL (2.5-4.9); SODIUM LEVEL 141 MMOL/L (136-145)
[2024-03-05 07:37] LABS: ERYTHROCYTE SEDIMENTATION RATE 43 mm/hr (0-15)
[2024-03-05 08:07] LABS: HEPATITIS A IgG TOTAL Negative (Negative); HEPATITIS B CORE ANTIBODY IGG Negative (Negative)
[2024-03-05] MEDS ORDERED: METHADONE 10MG TAB PO SCH ×2 (09:00→09:50)
[2024-03-05] MEDS: BACTRIM 160MG/800MG DS TAB PO SCH (09:49)
[2024-03-05] MEDS: PANTOPRAZOLE 40MG TAB (PROTONIX) PO SCH (09:50)
[2024-03-05] MEDS: METHADONE 10MG TAB PO SCH (09:59)
[2024-03-05] MEDS: MOM 30ML SUSPENSION UDC PO PRN (17:03)
[2024-03-05] MEDS: MIRALAX *UNIT DOSE* 17GM PACKET PO PRN (17:03)
[2024-03-06 03:43] VITALS: BP 117/72; TEMP 97; O2SAT 96
[2024-03-06 05:29] LABS: BASO # 0.1 10^3/uL (0.0-0.2); BASO % 0.7 % (0.0-1.0); EOS # 0.2 10^3/uL (0.0-0.5); EOS % 1.9 % (0.0-3.0); HEMATOCRIT 40.8 % (42.0-52.0); HEMOGLOBIN 13.8 g/dl (13.5-17.5); LYMPH # 2.9 10^3/uL (1.5-5.0); LYMPH % 30.2 % (24.0-44.0); MEAN CORPUSCULAR HEMOGLOBIN 28.5 pg (27.0-33.0); MEAN CORPUSCULAR HGB CONC 33.8 g/dl (32.0-36.5); MEAN CORPUSCULAR VOLUME 84.1 fl (80.0-96.0); MONO # 0.6 10^3/uL (0.0-0.8); MONO % 6.5 % (2.0-8.0); NEUTROPHILS # 5.8 10^3/uL (1.5-8.5); NEUTROPHILS % 60.3 % (36.0-66.0); PLATELET COUNT, AUTOMATED 406 10^3/uL (150-450); RED BLOOD COUNT 4.85 10^6/uL (4.30-6.10); WHITE BLOOD COUNT 9.6 10^3/uL (4.0-10.0)
[2024-03-06 05:51] LABS: C REACTIVE PROTEIN QUANTITATIV < 0.40 MG/DL (<1.0)
[2024-03-06 05:53] LABS: BLOOD UREA NITROGEN 12 MG/DL (9-23); CALCIUM LEVEL 8.8 MG/DL (8.5-10.1); CARBON DIOXIDE LEVEL 27 MMOL/L (20-31); CHLORIDE LEVEL 109 MMOL/L (98-107); CREATININE FOR GFR 0.85 MG/DL (0.70-1.30); GLOMERULAR FILTRATION RATE > 60.0 (>60); GLUCOSE, FASTING 98 MG/DL (60-100); MAGNESIUM LEVEL 2.1 MG/DL (1.8-2.4); PHOSPHORUS LEVEL 4.2 MG/DL (2.5-4.9); POTASSIUM SERUM 3.8 MMOL/L (3.5-5.1); SODIUM LEVEL 141 MMOL/L (136-145)
[2024-03-06 07:27] VITALS: BP 142/88; O2SAT 91
[2024-03-06 07:43] VITALS: BP 102/58; TEMP 97.8; O2SAT 97
[2024-03-06 10:42] VITALS: BP 147/97
[2024-03-06] MEDS: cloNIDine 0.1MG TABLET PO SCH (10:42)
[2024-03-06] MEDS: amLODIPine 5 MG TAB PO SCH (10:43)
[2024-03-06] MEDS ORDERED: CLONI1TA PO (11:25)
[2024-03-06] MEDS ORDERED: BACTDSTA PO (11:25)
[2024-03-06] MEDS ORDERED: CARV6.25 PO (11:25)
[2024-03-06] MEDS ORDERED: METH-1177 PO (11:25)
[2024-03-06] MEDS ORDERED: AMLO1TAB24 PO (11:25)
== END 2024-03-06 13:10 | DRG 720 ==
LOC: M ED 15:42 → M ED INP 20:10 → EEVIPCON 20:10 → M PCU 21:52
PROVIDERS: ADMIT Internal Medicine; ATTEND Internal Medicine
PROC: B246ZZZ Ultrasonography of Right and Left Heart (ICD-10-PCS; 2024-03-03)
PROC: 02HV33Z Insertion of Infusion Device into Superior Vena Cava, Percutaneous Approach (ICD-10-PCS; principal; 2024-03-03 08:34)
DX: A41.9 Sepsis, unspecified organism (principal); I47.20 Ventricular tachycardia, unspecified; L02.219 Cutaneous abscess of trunk, unspecified; F11.13 Opioid abuse with withdrawal; L03.113 Cellulitis of right upper limb; L03.114 Cellulitis of left upper limb; I16.0 Hypertensive urgency; B18.2 Chronic viral hepatitis C; F14.10 Cocaine abuse, uncomplicated; F17.200 Nicotine dependence, unspecified, uncomplicated; L08.9 Local infection of the skin and subcutaneous tissue, unspecified; I10 Essential (primary) hypertension; K59.00 Constipation, unspecified; F31.9 Bipolar disorder, unspecified; F43.10 Post-traumatic stress disorder, unspecified; Z71.6 Tobacco abuse counseling; Z71.51 Drug abuse counseling and surveillance of drug abuser

== ENCOUNTER → 2024-05-08 | Outpatient (CLI) | payer OTHER ==
[~2024-05-08] MED LIST changes: +BACTDSTA PO; +BUPR8SUB; +CARV6.25 PO; +FURO40TA2 PO; +LISI20TA33 PO
== END ==
LOC: M RAD 14:06
PROVIDERS: ATTEND Physician Assistant Medical
DX: L53.9 Erythematous condition, unspecified (principal); R22.31 Localized swelling, mass and lump, right upper limb

== ENCOUNTER → 2024-06-28 | Outpatient (CLI) | payer OTHER ==
[~2024-06-28] MED LIST changes: -BUPR8SUB; -FURO40TA2 PO; -LISI20TA33 PO
== END ==
LOC: M SOG 07:55
PROVIDERS: ATTEND Physician Assistant
DX: M79.641 Pain in right hand (principal); M79.89 Other specified soft tissue disorders

== ENCOUNTER 2024-07-15 09:04 | Emergency (ER) | payer OTHER ==
[~2024-07-15] VITALS: Ht 167.6 cm; Wt 100.0 kg
[2024-07-15] MEDS ORDERED: AMLO1TAB24 PO (09:30)
[2024-07-15] MEDS ORDERED: BUPR8SUB (10:59)
[2024-07-15] MEDS ORDERED: LISI20TA33 PO (10:59)
[2024-07-15] MEDS ORDERED: FURO40TA2 PO (11:00)
[2024-07-15 11:48] LABS: BASO % 0.7 % (0.0-1.0); EOS # 0.2 10^3/uL (0.0-0.5); EOS % 3.4 % (0.0-3.0); HEMATOCRIT 40.4 % (42.0-52.0); HEMOGLOBIN 14.3 g/dl (13.5-17.5); LYMPH % 36.6 % (24.0-44.0); MEAN CORPUSCULAR HEMOGLOBIN 30.4 pg (27.0-33.0); MEAN CORPUSCULAR HGB CONC 35.4 g/dl (32.0-36.5); MEAN CORPUSCULAR VOLUME 85.8 fl (80.0-96.0); MONO # 0.5 10^3/uL (0.0-0.8); MONO % 8.2 % (2.0-8.0); NEUTROPHILS # 2.9 10^3/uL (1.5-8.5); NEUTROPHILS % 51.1 % (36.0-66.0); PLATELET COUNT, AUTOMATED 275 10^3/uL (150-450); RED BLOOD COUNT 4.71 10^6/uL (4.30-6.10); WHITE BLOOD COUNT 5.6 10^3/uL (4.0-10.0)
[2024-07-15 12:12] LABS: PROTHROMBIN TIME 12.9 SECONDS (12.5-14.5)
[2024-07-15 12:15] LABS: BLOOD UREA NITROGEN 12 MG/DL (9-23); CALCIUM LEVEL 9.7 MG/DL (8.5-10.1); CARBON DIOXIDE LEVEL 28 MMOL/L (20-31); CHLORIDE LEVEL 107 MMOL/L (98-107); CK-MB VALUE MASS < 1.0 NG/ML (<3.6); CREATININE FOR GFR 0.66 MG/DL (0.70-1.30); GLOMERULAR FILTRATION RATE > 60.0 (>60); GLUCOSE, FASTING 79 MG/DL (60-100); POTASSIUM SERUM 4.4 MMOL/L (3.5-5.1); SODIUM LEVEL 140 MMOL/L (136-145)
[2024-07-15 12:28] LABS: CPK CREATINE PHOSPHOKINASE 170 U/L (46-171); MB/CK RELATIVE INDEX 0.58 (< OR =4)
[2024-07-15 13:03] VITALS: BP 167/106; TEMP 97.1; O2SAT 98
== END 2024-07-15 13:10 | disposition home or self-care (01) ==
LOC: M ED 09:04 → EDBD 09:04 → M ED 13:10
DX: R07.89 Other chest pain (principal); I10 Essential (primary) hypertension; F31.9 Bipolar disorder, unspecified; F17.210 Nicotine dependence, cigarettes, uncomplicated; F19.10 Other psychoactive substance abuse, uncomplicated; Z88.8 Allergy status to other drugs, medicaments and biological substances; Z79.899 Other long term (current) drug therapy

== ENCOUNTER → 2024-07-28 | Outpatient (CLI) | payer MEDICAID, OTHER ==
[~2024-07-28] MED LIST changes: +BUPR8SUB PO; +CARV12.5 PO; +FURO40TA2 PO; +IBUP200C25 PO; +LISI20TA33 PO; +PROHANCE 279.3MG/ML 15ML VIAL As Ordered ONE; +PROHANCE 279.3MG/ML 5ML VIAL As Ordered ONE; +TUMS500C PO
== END ==
LOC: M RAD 10:45
PROVIDERS: ATTEND Physician Assistant
DX: L03.113 Cellulitis of right upper limb (principal); L02.511 Cutaneous abscess of right hand; M79.641 Pain in right hand; M86.141 Other acute osteomyelitis, right hand

== ENCOUNTER 2024-08-14 09:34 | Day surgery (SDC) | payer OTHER ==
[~2024-08-14] VITALS: Ht 167.6 cm; Wt 103.4 kg
[~2024-08-14 09:34] MED LIST changes: -PROHANCE 279.3MG/ML 15ML VIAL As Ordered ONE; -PROHANCE 279.3MG/ML 5ML VIAL As Ordered ONE
[2024-08-14] MEDS ORDERED: ceFAZolin 2 GM/D5W 50 ML IV BAG As Ordered ONE (11:22)
[2024-08-14] MEDS: ceFAZolin SOD 2 GM in IV 1 EA IV ONE (11:44)
[2024-08-14] MEDS ORDERED: fentaNYL 100 MCG/2 ML INJECTION As Ordered ONE (11:53)
[2024-08-14] MEDS ORDERED: MIDAZOLAM INJ 2MG/2ML VIAL As Ordered ONE (11:53)
[2024-08-14] MEDS ORDERED: ONDANSETRON 4MG 2ML VIAL As Ordered ONE (11:53)
[2024-08-14] MEDS ORDERED: LIDOCAINE 2% 100MG/5ML SDV (FOR ANES.) As Ordered ONE (11:53)
[2024-08-14] MEDS ORDERED: propofoL 200 MG/20 ML VIAL As Ordered ONE (11:53)
[2024-08-14] MEDS ORDERED: ROCURONIUM BROMIDE 50MG/5ML VIAL As Ordered ONE (11:53)
[2024-08-14] MEDS ORDERED: SUGAMMADEX SODIUM 500 MG/5 ML VIAL (BRIDION) As Ordered ONE (11:53)
[2024-08-14] MEDS ORDERED: HYDROmorphone HCL 2MG/ML 1ML VIAL As Ordered ONE (11:54)
[2024-08-14] MEDS ORDERED: KETOROLAC 60MG 2ML VIAL As Ordered ONE (12:23)
[2024-08-14] MEDS ORDERED: BACITRACIN OINTMENT 30GM TUBE As Ordered ONE (12:24)
[2024-08-14] MEDS ORDERED: MORPHINE 2 MG/ML 1ML VIAL IV PRN (12:50)
[2024-08-14] MEDS ORDERED: oxyCODONE 5MG TAB PO PRN (12:50)
[2024-08-14] MEDS ORDERED: ONDANSETRON 4MG 2ML VIAL IV PRN (12:50)
[2024-08-14] MEDS ORDERED: NS 1,000 ML IV SCH (12:50)
[2024-08-14] MEDS ORDERED: fentaNYL 100 MCG/2 ML INJECTION IV PRN (12:50)
[2024-08-14 14:10] VITALS: BP 130/82; TEMP 97.2; O2SAT 96
== END 2024-08-14 14:13 | disposition home or self-care (01) ==
LOC: M SDC 09:34
PROVIDERS: ATTEND Orthopaedic Surgery Hand Surgery
DX: M86.641 Other chronic osteomyelitis, right hand (principal); I10 Essential (primary) hypertension; Z79.899 Other long term (current) drug therapy; F17.210 Nicotine dependence, cigarettes, uncomplicated
CPT/HCPCS: 26230; 76000; 87070; 87075; 87116; 87205; 87206; J0665; J0690; J1100; J1171; J1885; J2250; J2405; J3010